=== PATIENT | female | born 1940 | race Caucasian/White ===

== ENCOUNTER 2020-07-31 12:04 | Inpatient (IN) | payer OTHER, SELFPAY ==
--- NOTE | 2020-07-30 22:13 | NUR ---
PATIENT RESTING: Patient resting quietly. No acute distress noted. Vital signs within normal range. Addendum: 08/01/20 at 0137 by Mariana Sethi RN WRONG ENTRY
[~2020-07-31] VITALS: Ht 152.4 cm; Wt 54.9 kg
[2020-07-31 12:20] VITALS: BP_SYST 155
--- NOTE | 2020-07-31 12:33 | NUR ---
Patient to ER bed 7 to gown for evaluation. Side rails up. Report given to Reza CODY.
--- NOTE | 2020-07-31 12:45 | NUR ---
Pt brought to ER for low back pain 06/27 after attempting to help another person up, pt resting in [facility] at this time, accompanied by family member, VSS.
--- NOTE | 2020-07-31 12:48 | NUR ---
ER at bedside examining patient.
[2020-07-31] MEDS ORDERED: MORPHINE 2 MG/ML INJ. SYRINGE IVP ONE (13:00)
[2020-07-31] MEDS ORDERED: CYCLOBENZAPRINE HCL 10 MG TABLET (FLEXERIL) PO ONE (13:00)
--- NOTE | 2020-07-31 14:30 | NUR ---
Pt resting in [facility] at this time VSS
--- NOTE | 2020-07-31 15:00 | NUR ---
Pt resting comfortably, VSS, no distress noted.
--- NOTE | 2020-07-31 16:53 | NUR ---
Patient will be admitted to care of [facility]. Admitted to Medsurg unit. Will go to room 102A. Belongings list completed. Complete and up to date summary report printed. SBAR report to be given at bedside with opportunity for questions.
[2020-07-31] MEDS ORDERED: SIMV5TAB59 PO (16:54)
[2020-07-31] MEDS ORDERED: VAL2 PO (16:55)
--- NOTE | 2020-07-31 16:58 | NUR ---
Medication reconciliation completed with information provided by pt. Any prior medication reconciliation on file was reviewed and corrected.Pt does not know he dosage and frequency of her home meds
--- NOTE | 2020-07-31 17:01 | NUR ---
ADMISSION NOTE Received patient from ER via ahsan, received report from GARCIA CODY. Patient admitted with diagnosis of ACUTE LUMBAR FRACTURE. Patient oriented to hospital routine, call light, toileting and safety-patient verbalized understanding.
--- NOTE | 2020-07-31 17:02 | NUR ---
CONSULTATION CALLED REASON FOR CONSULTATION:ACUTE LUMBAR FRACTURE WAS CONSULT CALLED?Y PERSON WHO WAS NOTIFIED:IDA CONSULTING PHYSICIAN:MASSIEL SHANNON TUBE FORMER OPERATOR SPECIALTY:NEURO SURGEON TUBE FORMER OPERATOR PHONE NUMBER:[phone] REQUESTING PHYSICIAN:SHANT SALES
[2020-07-31 17:14] VITALS: BP_SYST 148
[2020-07-31] MEDS ORDERED: FLU VACC QS2020-21(65UP)/PF 0.7 ML/SYRINGE I.M. PRN (17:45)
--- NOTE | 2020-07-31 18:14 | NUR ---
to the floor this evening at about 1700, alert, oriented, and appropriate. Had difficulty when attempted to get to bed, " so much in pain " with minimal assistance, to bed, and using bedpan right away. Pain started today when tried to crop picker grandchild from the floor, felt pain right on low back, history revealed she had spinal fx. the pain described as " sharp, radiated to bilateral flanks, denied numbness, tingling, nor weakness" attending called x 1 for pain meds. on bedrest and eating dinner now.
[2020-07-31] MEDS: KETOROLAC TROMETHAMINE 15 MG VIAL IVP SCH (18:55)
--- NOTE | 2020-07-31 19:35 | NUR ---
ROUNDS PATIENT RESTING COMFORTABLY IN BED, NOT IN DISTRESS, VITALS STABLE. NO MORE PAIN AT THIS TIME. ASSESSMENT DONE AND DOCUMENTED. SEE FLOWSHEET. NEEDS ATTENDED TO. SAFETY AND FALL MEASURES IN PLACED. BED IN LOW AND LOCKED POSITION. CALL LIGHT PLACED WITHIN REACH.
[2020-08-01] VITALS: BP_SYST 131
--- NOTE | 2020-08-01 00:12 | NUR ---
PATIENT RESTING: Patient resting quietly. No acute distress noted. Vital signs within normal range.
[2020-08-01] MEDS: KETOROLAC TROMETHAMINE 15 MG VIAL IVP SCH ×4 (01:12→18:59)
--- NOTE | 2020-08-01 02:14 | NUR ---
ROUNDS PATIENT SLEEPING, NO SOB NOTED NOR PAIN AND DISCOMFORT, WILL CONTINUE TO MONITOR.
--- NOTE | 2020-08-01 06:21 | NUR ---
FLU VACCINE FLU VACCINE GIVEN ORDERED AND CONSENTED PER SCREENING, TOLERATED WELL. WILL CONTINUE TO MONITOR.
[2020-08-01 06:44] LABS: BASOPHILS # (AUTO) 0.1 K/uL (0.0-0.2); BASOPHILS % (AUTO) 0.9 % (0.0-2.0); EOSINOPHILS # (AUTO) 0.2 K/uL (0.0-0.4); EOSINOPHILS % (AUTO) 2.5 % (0.0-4.0); HEMATOCRIT 38.1 % (36-48); LYMPHOCYTES # (AUTO) 1.9 K/uL (1.0-5.5); LYMPHOCYTES % (AUTO) 25.9 % (20.5-51.5); MEAN CORPUSCULAR HEMOGLOBIN 32 pg (27-31); MEAN CORPUSCULAR HGB CONC 34 % (32-36); MEAN CORPUSCULAR VOLUME 93 fL (79.0-98.0); MONOCYTES # (AUTO) 0.7 K/uL (0.0-1.0); MONOCYTES % (AUTO) 8.7 % (1.7-9.3); NEUTROPHILS # (AUTO) 4.6 K/uL (1.8-7.7); PLATELET COUNT (AUTO) 207 K/uL (130-430); RED CELL DISTRIBUTION WIDTH 12.7 % (9.0-15.0); WHITE BLOOD COUNT (AUTO) 7.5 K/uL (4.8-10.8)
[2020-08-01 07:29] LABS: ANION GAP 8 (5-15); CALCIUM 8.7 mg/dL (8.4-11.0); CHLORIDE 103 mmol/L (98-107); CREATININE 0.72 mg/dL (0.55-1.30); GLUCOSE 99 mg/dL (70-99); POTASSIUM 4.2 mmol/L (3.5-5.1); SODIUM SERUM 137 mmol/L (136-145); UREA NITROGEN, BLOOD 16 mg/dL (8-21)
--- NOTE | 2020-08-01 08:00 | NUR ---
A/Ox4,occitan speaking,vss,resting well in bed,no c/o pain or discomfort,needs attended,call light & personal items within pt reach safety maintained.continue to monitor pt.
[2020-08-01] MEDS: ENOXAPARIN SODIUM 40 MG/0.4 ML SYRINGE SUBCUT SCH (09:00)
[2020-08-01] MEDS: LOSARTAN POTASSIUM 50 MG TABLET (COZAAR) PO SCH (09:01)
--- NOTE | 2020-08-01 09:50 | NUR ---
Nutrition Update Andesron Scale 17 noted. Pt admitted for acute lumbar fracture. Diet: regular BMI: 23.6 kg/m2 RD to follow per nutrition care standards.
--- NOTE | 2020-08-01 10:00 | NUR ---
assited pt urinated in bedpan,hourly rounds made,safety maintained.
--- NOTE | 2020-08-01 12:00 | NUR ---
vss,pt c/o severe pain in left side of back when turns,continue and give toradol 15mg IV per order. and repositioned for comfort.
[2020-08-01 12:17] VITALS: BP_SYST 144
--- NOTE | 2020-08-01 12:19 | NUR ---
Case mgt: Met w/pt at bedside to do DCPA-Pt speaks fluent German-She says she lives in [place] in home with her dtr Kandy but was visiting her daughters Leatha and Tricia (Tricia is disabled so Leatha takes care of her),when she hurt her back helping w/Tricia. Pt dcp will depend on POC pending neursurgeron consult. I explained she may need home health vs. snf for PT once neurosurgeon sees her we will know more (PT leyla). Pt says if able to go home, she will go to her dtr Leatha's single story house in [place] since there is hospital bed there and it's closer than [place] & Leatha can help her more than Kandy can. Pt has [facility] up in [place]. I explained choice of vendor and acknowledged pt also has [id number] secondary.Pt resides in [facility].F/U for dc planning as needed. ANDREAS CODY
--- NOTE | 2020-08-01 14:00 | NUR ---
pt sleeping quietly in bed.continue to monitor pt.
[2020-08-01] MEDS ORDERED: HYDROcodone/ACETAMIN 10-325 MG TAB PO PRN (15:30)
[2020-08-01] MEDS ORDERED: NALOXONE HCL 0.4 MG/ML AMP (NARCAN) IVP PRN ×2 (15:30)
--- NOTE | 2020-08-01 16:00 | NUR ---
surgical consult came and seen pt at bedside.orders received and carried out.
[2020-08-01 16:20] VITALS: BP_SYST 153
--- NOTE | 2020-08-01 17:43 | NUR ---
RESUME CARE Patient resting in the bed. No acute distress. Skin warm and dry to touch. SL intact to RFA, no redness, no swelling, patent. Safety measure maintained. Call light within reached. Bed locked in low position, side rails up, bed alarm on. Continue to monitor and plan of care.
[2020-08-01] MEDS ORDERED: MILK OF MAGNESIA 30 ML UDC PO ONE (18:00)
[2020-08-01] MEDS ORDERED: MILK OF MAGNESIA 30 ML UDC PO PRN (18:00)
[2020-08-01] MEDS: cefTRIAXone 1 GM in D5W 50 ML IV SCH (18:46)
--- NOTE | 2020-08-01 18:58 | NUR ---
CLOSING NOTE Patient resting in the bed. No acute distress. Skin warm and dry to touch. IV intact to RFA, no redness, no swelling, patent. All needs met. Safety measure maintained. Call light within reached. Bed locked in low position, side rails up, bed alarm on. Will endorse to night nurse.
[2020-08-01] MEDS ORDERED: cefTRIAXone 1 GM VIAL ONE (18:59)
--- NOTE | 2020-08-01 19:35 | NUR ---
ROUNDS PATIENT RESTING COMFORTABLY IN BED, VITALS STABLE, DENIES PAIN AT THIS TIME. SHIFT ASSESSMENT DONE AND DOCUMENTED. SEE FLOWSHEET. NEEDS ATTENDED TO. SAFETY AND FALL MEASURES IN PLACED. BED ALARM ON. CALL LIGHT PLACED WITHIN REACH.
[2020-08-01 20:00] VITALS: BP_SYST 122
[2020-08-01] MEDS: SIMVASTATIN 10 MG TABLET PO SCH (20:28)
[2020-08-01] MEDS: SENNOSIDES 8.6 MG TABLET PO SCH (20:28)
--- NOTE | 2020-08-01 21:10 | NUR ---
MEDICATIONS DUE MEDICATIONS GIVEN SCHEDULED, TOLERATED WELL. WILL CONTINUE TO MONITOR.
[2020-08-02 00:10] VITALS: BP_SYST 128
--- NOTE | 2020-08-02 00:16 | NUR ---
PATIENT RESTING: Patient resting quietly. No acute distress noted. Vital signs within normal range.
[2020-08-02] MEDS: KETOROLAC TROMETHAMINE 15 MG VIAL IVP SCH ×3 (00:50→12:26)
--- NOTE | 2020-08-02 02:13 | NUR ---
ROUNDS PATIENT ASLEEP, RESPIRATIONS EVEN AND UNLABORED, NO SOB NOTED. WILL CONTINUE TO MONITOR.
--- NOTE | 2020-08-02 04:17 | NUR ---
ROUNDS PATIENT SLEEPING, NO SOB NOR PAIN AND DISCOMFORT NOTED. WILL CONTINUE TO MONITOR.
--- NOTE | 2020-08-02 06:38 | NUR ---
CLOSING NOTES PATIENT AWAKE, NO COMPLAINTS AT THIS TIME, ALL NEEDS ATTENDED TO. SAFETY MEASURES MAINTAINED. BED IN LOW AND LOCKED POSITION. CALL LIGHT PLACED WITHIN REACH.
[2020-08-02] MEDS: LOSARTAN POTASSIUM 50 MG TABLET (COZAAR) PO SCH (08:04)
[2020-08-02] MEDS: ENOXAPARIN SODIUM 40 MG/0.4 ML SYRINGE SUBCUT SCH (08:06)
[2020-08-02 08:10] VITALS: BP_SYST 139
--- NOTE | 2020-08-02 08:10 | NUR ---
Routine Scheduled medications given per order. Patient resting quietly in bed with no distress noted. Patient stable at this time.
--- NOTE | 2020-08-02 09:30 | NUR ---
Routine Patient assisted to bedside commode and back to bed. Patient stable.
[2020-08-02] MEDS: HYDROcodone/ACETAMIN 10-325 MG TAB PO PRN (10:55)
--- NOTE | 2020-08-02 10:55 | NUR ---
Routine Patient medicated for 10/10 pain in abdomen and lower back. Patient stable at this time.
[2020-08-02 12:10] VITALS: BP_SYST 145
--- NOTE | 2020-08-02 12:27 | NUR ---
Routine Scheduled IVP medication given. Patient resting comfortably and quietly in bed at this time; stable.
--- NOTE | 2020-08-02 12:54 | NUR ---
Routine Patient eating lunch; states pain is subsiding; now 11/16. Patient stable at this time.
--- NOTE | 2020-08-02 13:00 | NUR ---
Routine Patient eating lunch with Dr. Berry at bedside. Patient stable.
[2020-08-02] MEDS ORDERED: DOCUSATE SODIUM 100 MG CAPSULE PO ONE (13:45)
[2020-08-02] MEDS ORDERED: ONDANSETRON HCL 4 MG/2 ML VIAL IVP PRN (14:15)
[2020-08-02] MEDS ORDERED: traMADol HCL HCL 50 MG TABLET (ULTRAM) PO PRN (14:15)
--- NOTE | 2020-08-02 14:30 | NUR ---
c/o of nausea/vomiting pt c/o of nausea and vomiting x2. dr rossi notified. Zofran 4 mg ivp given as ordered. will continue to monitor
--- NOTE | 2020-08-02 14:53 | NUR ---
DC Planning: faxed referral package attn Ginette at [facility] fax # [phone], tel [phone], pending PT. The pt c/o nausea and vomiting today. Per Ginette, the case will be reviewed in am. CM to f/u. >> Per GLO Sae, LSO back brace is at bedside.
[2020-08-02] MEDS ORDERED: BISACODYL 10 MG/SUPPOSITORY RC ONE (15:30)
[2020-08-02] MEDS: MECLIZINE HCL 25 MG TABLET (ANITVERT) PO SCH ×2 (15:36→20:13)
--- NOTE | 2020-08-02 15:38 | NUR ---
Routine Scheduled medications given per order. Patient resting quietly in bed at this time. Patient stable.
[2020-08-02 16:40] VITALS: BP_SYST 126
[2020-08-02] MEDS: cefTRIAXone 1 GM in D5W 50 ML IV SCH (17:32)
--- NOTE | 2020-08-02 17:33 | NUR ---
Routine Scheduled IV abx given per order. Patient resting quietly in bed at this time. Patient stable.
--- NOTE | 2020-08-02 19:30 | NUR ---
Initial Note: Received report from matthew RN. Patient is in bed, resting. No acute distress. Even, nonlabored breathing on room air. IV site is patent, intact, and saline locked. Bed is locked at lowest position. Side rails up x3. Bed alarm is on. Call light is with patient. Safety and fall precautions in place. Will continue with plan of care.
[2020-08-02 20:00] VITALS: BP_SYST 136
[2020-08-02] MEDS: SENNOSIDES 8.6 MG TABLET PO SCH (20:13)
[2020-08-02] MEDS: SIMVASTATIN 10 MG TABLET PO SCH (20:14)
--- NOTE | 2020-08-02 21:45 | NUR ---
Rounds: Patient is resting in bed. No s/s of acute distress. Respirations are even and unlabored. Call light is with patient. Safety and fall precautions in place. Will continue monitoring.
--- NOTE | 2020-08-02 23:45 | NUR ---
Rounds: Patient is resting in bed. No signs of acute distress. Breathing is even and nonlabored on room air. Call light is with patient. Safety and fall precautions in place. Will continue monitoring.
[2020-08-03 00:24] VITALS: BP_SYST 154
--- NOTE | 2020-08-03 02:00 | NUR ---
Rounds: Patient is sleeping in bed. No acute distress. Even, nonlabored respirations on room air. Call light is with patient. Safety and fall precautions in place. Will continue to monitor.
--- NOTE | 2020-08-03 04:15 | NUR ---
Rounds: Patient is resting in bed. No acute distress. Respirations are even and nonlabored on room air. Call light is with patient. Safety and fall precautions in place. Will continue to monitor.
[2020-08-03 06:19] LABS: BASOPHILS # (AUTO) 0.1 K/uL (0.0-0.2); BASOPHILS % (AUTO) 0.6 % (0.0-2.0); EOSINOPHILS # (AUTO) 0.1 K/uL (0.0-0.4); HEMATOCRIT 38.2 % (36-48); HEMOGLOBIN 12.9 g/dL (12.0-16.0); LYMPHOCYTES # (AUTO) 1.1 K/uL (1.0-5.5); LYMPHOCYTES % (AUTO) 10.4 % (20.5-51.5); MEAN CORPUSCULAR HEMOGLOBIN 31 pg (27-31); MEAN CORPUSCULAR HGB CONC 34 % (32-36); MEAN CORPUSCULAR VOLUME 93 fL (79.0-98.0); MONOCYTES # (AUTO) 1.1 K/uL (0.0-1.0); MONOCYTES % (AUTO) 10.8 % (1.7-9.3); NEUTROPHILS # (AUTO) 8.1 K/uL (1.8-7.7); NEUTROPHILS % (AUTO) 77.2 % (40.0-70.0); PLATELET COUNT (AUTO) 189 K/uL (130-430); RED BLOOD CELL COUNT(AUTO) 4.12 MIL/uL (4.2-6.2); RED CELL DISTRIBUTION WIDTH 12.4 % (9.0-15.0); WHITE BLOOD COUNT (AUTO) 10.5 K/uL (4.8-10.8)
[2020-08-03 06:30] LABS: ANION GAP 6 (5-15); CALCIUM 8.5 mg/dL (8.4-11.0); CHLORIDE 101 mmol/L (98-107); CREATININE 0.84 mg/dL (0.55-1.30); GLUCOSE 116 mg/dL (70-99); POTASSIUM 4.3 mmol/L (3.5-5.1); SODIUM SERUM 136 mmol/L (136-145); UREA NITROGEN, BLOOD 12 mg/dL (8-21)
--- NOTE | 2020-08-03 06:46 | NUR ---
Closing Note: Patient is in bed, resting. No acute distress. Even, nonlabored breathing on room air. IV site is patent, intact, and saline locked. All needs met. Bed is locked at lowest position. Side rails up x3. Bed alarm is on. Call light is with patient. Safety and fall precautions in place. Will endorse to dayshijosue RN.
--- NOTE | 2020-08-03 08:00 | NUR ---
AM ROUNDS: PATIENT ON SEMI AGUIRRE'S POSITION.MONGOLIAN SPEAKING ,UNDERSTAND BASIC [place]. IV SALINE LOCK. CALL LIGHT WITH IN REACH. BED LOCKED AT LOWEST POSITION. BED ALARM ON. NO DISTRESS.
[2020-08-03] MEDS: LOSARTAN POTASSIUM 50 MG TABLET (COZAAR) PO SCH (08:40)
[2020-08-03] MEDS: MECLIZINE HCL 25 MG TABLET (ANITVERT) PO SCH ×2 (08:40→20:36)
--- NOTE | 2020-08-03 08:40 | NUR ---
PAIN MEDS: C/O LOWER BACK PAIN DUE PO ULTRAM GIVEN PER PATIENT'S REQUEST. NO PROBLEM.
[2020-08-03] MEDS: ENOXAPARIN SODIUM 40 MG/0.4 ML SYRINGE SUBCUT SCH (08:41)
[2020-08-03 08:45] VITALS: BP_SYST 126
[2020-08-03 12:09] VITALS: BP_SYST 115
--- NOTE | 2020-08-03 13:38 | NUR ---
P.T. NOTES P.T. EVAL COMPLETED; REFER TO EVAL FOR DETAILS; WILL BENEFIT W/ P.T. POST ACUTE STAY.
--- NOTE | 2020-08-03 14:52 | NUR ---
Discharge Planning: DCP faxed patient PT notes to [facility] p [phone]) DCP to follow up Addendum: 08/03/20 at 1522 by Genet Shelton DP DCP arranged transportation on Will Call with [facility] ([phone]) BLS to [facility] p [phone]) pending DC order.
[2020-08-03 16:09] VITALS: BP_SYST 119
[2020-08-03] MEDS: cefTRIAXone 1 GM in D5W 50 ML IV SCH (17:24)
--- NOTE | 2020-08-03 19:30 | NUR ---
OPENING NOTE: RECEIVED SBAR REPORT FROM DAY SHIFT RN. PATIENT IS IN BED, AWAKE, ALERT AND ORIENTED X 4. RESPIRATION IS EVEN AND NON-LABORED ON RA. NO S/S ACUTE DISTRESS NOTED. IV SALINE LOCK NOTED ON R HAND. NO SIGN OF INFILTRATION NOTED AT THIS TIME. SAFETY AND FALL PRECAUTIONS ARE IN PLACE. WILL CONTINUE TO MONITOR.
--- NOTE | 2020-08-03 19:37 | NUR ---
END OF SHIFT: REPORT GIVEN TO NIGHT NURSE KAISER. NO ACUTE DISTRESS. SAFETY MEASURES RENDERED.
--- NOTE | 2020-08-03 20:13 | NUR ---
MED PASS: PATIENT GIVEN PO SCHEDULED MEDS, TOLERATED TAKING PO MEDS WELL. NO S/S ACUTE DISTRESS NOTED. SAFETY AND FALL PRECAUTIONS ARE IN PLACE. CALL LIGHT IS WITH PATIENT. WILL CONTINUE TO MONITOR.
[2020-08-03] MEDS: HYDROcodone/ACETAMIN 10-325 MG TAB PO PRN (20:35)
[2020-08-03] MEDS: SIMVASTATIN 10 MG TABLET PO SCH (20:36)
[2020-08-03] MEDS: SENNOSIDES 8.6 MG TABLET PO SCH (20:36)
--- NOTE | 2020-08-03 22:15 | NUR ---
RN ROUNDS: IV SITE NOTED TO BE INFILTRATED. DISCONTINUE IV. COVERED THE SITE WITH DRY DRESSING.
[2020-08-04 00:08] VITALS: BP_SYST 107
--- NOTE | 2020-08-04 00:15 | NUR ---
RN ROUNDS: PATIENT IS IN BED, CURRENTLY SLEEPING. RESPIRATION IS EVEN AND NON-LABORED. NO S/S ACUTE DISTRESS NOTED AT THIS TIME. SAFETY AND FALL PRECAUTIONS ARE IN PLACE. WILL CONTINUE TO MONITOR PATIENT.
--- NOTE | 2020-08-04 02:20 | NUR ---
RN ROUNDS: PATIENT IS IN THE BED, SLEEPING. BREATHING EVENLY AND NON-LABORED ON RA. NO S/S ACUTE DISTRESS NOTED AT THIS TIME. SAFETY AND FALL PRECAUTIONS MAINTAINED, WILL CONTINUE TO MONITOR.
--- NOTE | 2020-08-04 04:10 | NUR ---
RN ROUNDS: PATIENT IS IN THE BED, CURRENTLY SLEEPING. NO S/S ACUTE DISTRESS NOTED. SAFETY AND FALL PRECAUTIONS ARE IN PLACE. CALL LIGHT IS WITH PATIENT. WILL CONTINUE TO MONITOR.
--- NOTE | 2020-08-04 07:04 | NUR ---
CLOSING NOTE: PATIENT IS IN BED, AWAKE. RESPIRATION IS EVEN AND UNLABORED ON RA. NO S/S ACUTE DISTRESS NOTED. PATIENT DENIES PAIN. SAFETY AND FALL PRECAUTIONS ARE IN PLACE. CALL LIGHT IS WITH PATIENT. SAFETY AND FALL PRECAUTIONS ARE IN PLACE. CALL LIGHT IS WITH PATIENT. WILL ENDORSE PATIENT CARE TO DAY SHIFT RN.
--- NOTE | 2020-08-04 07:20 | NUR ---
OPENING NOTES PT AWAKE, ALERT, AND ORIENTED. NONLABORED BREATHING NOTED ON ROOM AIR. PT DENIES PAIN AND SOB AT THIS TIME. NO ACUTE DISTRESS NOTED. NO IV LINE NOTED, WILL RE-INSERT. ALL NEEDS MET. CALL LIGHT IN REACH. BED LOCKED AND IN LOWEST POSITION. BED ALARM ON. FALL AND ASPIRATION PRECAUTIONS IN PLACE. CONTINUE TO MONITOR.
--- NOTE | 2020-08-04 07:55 | NUR ---
Nutrition Update Anderson scale 16 noted. Pt admitted for acute lumbar fracture Diet: Regular Diet with Ensure Enlive TID BMI: 23.6 kg/m2 RD to follow per nutrition care standards.
[2020-08-04 08:00] VITALS: BP_SYST 125
[2020-08-04] MEDS: MECLIZINE HCL 25 MG TABLET (ANITVERT) PO SCH (08:31)
[2020-08-04] MEDS: LOSARTAN POTASSIUM 50 MG TABLET (COZAAR) PO SCH (08:31)
[2020-08-04] MEDS: ENOXAPARIN SODIUM 40 MG/0.4 ML SYRINGE SUBCUT SCH (08:32)
--- NOTE | 2020-08-04 08:37 | NUR ---
ROUTINE MEDS ADMINISTERED ORDERED PER MD, EDUCATION GIVEN, PT VERBALIZED UNDERSTANDING, TOLERATED WELL. CONTINUE TO MONITOR.
--- NOTE | 2020-08-04 11:29 | NUR ---
Discharge Planning: DCP faxed patient Covid19 results [facility] p [phone]) Ginette will call with room.
[2020-08-04 11:32] VITALS: BP_SYST 120
--- NOTE | 2020-08-04 12:24 | NUR ---
Discharge Planning: DCP arranged transportation with [facility] ([phone]) BLS 6:00pm to [facility] ( [phone] p [phone]) Rm [id number] per Ginette after 6:00pm preferred for arrival. DCP made nurse aware.
[2020-08-04] MEDS: HYDROcodone/ACETAMIN 10-325 MG TAB PO PRN (12:27)
--- NOTE | 2020-08-04 12:34 | NUR ---
PT C/O 04/27 PAIN, CHECKED BP, ADMINISTERED PAIN MEDICATIONS ORDERED PER MD, EDUCATION GIVEN, TOLERATED WELL. CONTINUE TO MONITOR.
--- NOTE | 2020-08-04 14:15 | NUR ---
ROUNDS PT AWAKE AND ALERT. NO ACUTE DISTRESS NOTED. ALL NEEDS MET. CALL LIGHT IN REACH. CONTINUE TO MONITOR.
--- NOTE | 2020-08-04 15:15 | NUR ---
ROUNDS PT RESTING IN BED, CHEST RISE AND FALL NOTED. EASILY AWAKEN. NO ACUTE DISTRESS NOTED. ALL NEEDS MET. CALL LIGHT IN REACH. CONTINUE TO MONITOR.
[2020-08-04 15:23] VITALS: BP_SYST 142
[2020-08-04 16:00] VITALS: BP_SYST 142
--- NOTE | 2020-08-04 16:30 | NUR ---
IV RE-INSERTION: No IV line noted. Restarted on L AC 24G. Successful after 2 attempts. Saline lock. Will observe for any signs of infiltration.
[2020-08-04] MEDS: cefTRIAXone 1 GM in D5W 50 ML IV SCH (17:27)
--- NOTE | 2020-08-04 17:28 | NUR ---
iv abx administered as ordered per md, education given, tolerated well. continue to monitor.
--- NOTE | 2020-08-04 18:52 | NUR ---
CLOSING NOTES PT AWAKE, ALERT, AND ORIENTED. NONLABORED BREATHING NOTED ON ROOM AIR. NO S/S OF PAIN AND SOB AT THIS TIME. NO ACUTE DISTRESS NOTED. IV LINE INTACT AND PATENT, NO SIGNS OF INFILTRATION NOTED. ALL NEEDS MET. CALL LIGHT IN REACH. BED LOCKED AND IN LOWEST POSITION. BED ALARM ON. FALL AND ASPIRATION PRECAUTIONS IN PLACE. AWAITING FOR AMBULANCE TO ARRIVE. WILL ENDORSE TO NOC NURSE.
--- NOTE | 2020-08-04 20:00 | NUR ---
D/C Patient Patient given medication reconciliation form and D/C instructions. Exit Care provided Patient. Patient in stable condition, ID band removed. IV catheter on left AC and it will be in place for rehab to continue abx treatment, dressing is intact and dry, no active bleeding. Patient educated on pain management. All belongings sent with patient. patient transferred to ambulance via gurney .
== END 2020-08-04 20:00 | DRG 544 ==
LOC: SED 12:04 → SMU 15:36
PROVIDERS: ADMIT Family Medicine; ATTEND Family Medicine
DX: M48.56XA Collapsed vertebra, not elsewhere classified, lumbar region, initial encounter for fracture (principal); M81.0 Age-related osteoporosis without current pathological fracture; E78.5 Hyperlipidemia, unspecified; M48.54XA Collapsed vertebra, not elsewhere classified, thoracic region, initial encounter for fracture; I10 Essential (primary) hypertension; K11.21 Acute sialoadenitis; Z86.73 Personal history of transient ischemic attack (TIA), and cerebral infarction without residual deficits
CPT/HCPCS: 36415; 72131; 76376; 80048; 82306; 83735-TC; 85025; 96374; 97110-GP; 97112-GP; 97116-GP; 97530-GP; 99285; J0696; J1650; J1885; J2270; J2405; J7060; J8597

== ENCOUNTER 2022-01-25 10:43 | Emergency (ER) | payer OTHER ==
[~2022-01-25] VITALS: Ht 149.9 cm; Wt 55.3 kg
[~2022-01-25 10:43] MED LIST: SIMV5TAB59 PO
[2022-01-25 11:19] VITALS: BP_SYST 196
--- NOTE | 2022-01-25 11:35 | NUR ---
Pt present to ED with complaint of hematemesis. Pt states that she was dx with an upper GI hernia during an endoscopy. Pt AOx4 GCS 15 citizen of [place] speaking accompanied by daughter. Pt states that she has been having difficulty eating for the past year. Pt also complains of CP located in the epigastric region. Pt placed in a gown and moved to ED bed 3
--- NOTE | 2022-01-25 11:41 | NUR ---
ED physician at the bedside assessing pt
[2022-01-25] MEDS ORDERED: KETOROLAC TROMETHAMINE 60 MG/2 ML VIAL IM ONE (11:45)
[2022-01-25] MEDS ORDERED: MAG HYDROX/AL HYDROX/SIMETH 30 ML, DICYCLOMINE HCL 20 MG, LIDOCAINE VISCOUS 2% 15ML (PO... PO ONE ×3 (11:45)
[2022-01-25 12:09] LABS: BASOPHILS # (AUTO) 0.1 K/uL (0.0-0.2); BASOPHILS % (AUTO) 0.8 % (0.0-2.0); EOSINOPHILS # (AUTO) 0.1 K/uL (0.0-0.4); HEMATOCRIT 37.8 % (36-48); HEMOGLOBIN 12.7 g/dL (12.0-16.0); LYMPHOCYTES # (AUTO) 2.2 K/uL (1.0-5.5); LYMPHOCYTES % (AUTO) 31.1 % (20.5-51.5); MEAN CORPUSCULAR HEMOGLOBIN 31 pg (27-31); MEAN CORPUSCULAR HGB CONC 34 % (32-36); MEAN CORPUSCULAR VOLUME 92 fL (79.0-98.0); MONOCYTES # (AUTO) 0.8 K/uL (0.0-1.0); MONOCYTES % (AUTO) 10.8 % (1.7-9.3); NEUTROPHILS # (AUTO) 3.9 K/uL (1.8-7.7); NEUTROPHILS % (AUTO) 55.3 % (40.0-70.0); PLATELET COUNT (AUTO) 219 K/uL (130-430); RED BLOOD CELL COUNT(AUTO) 4.13 MIL/uL (4.2-6.2); RED CELL DISTRIBUTION WIDTH 12.7 % (9.0-15.0); WHITE BLOOD COUNT (AUTO) 7.1 K/uL (4.8-10.8)
[2022-01-25 12:16] LABS: ANION GAP 4 (5-15); CALCIUM 8.3 mg/dL (8.4-11.0); CHLORIDE 106 mmol/L (98-107); CREATININE 0.84 mg/dL (0.55-1.30); GLUCOSE 107 mg/dL (70-99); POTASSIUM 3.9 mmol/L (3.5-5.1); SODIUM SERUM 137 mmol/L (136-145); UREA NITROGEN, BLOOD 15 mg/dL (8-21)
[2022-01-25 12:26] LABS: ALANINE AMINOTRANSFERASE 52 U/L (12-78); ALBUMIN 3.3 g/dL (3.4-4.8); ASPARTATE AMINOTRANSFERASE 39 U/L (10-37); TOTAL BILIRUBIN 0.3 mg/dL (0.0-1.0)
[2022-01-25] MEDS ORDERED: SUCR1ORA4 PO (12:59)
[2022-01-25] MEDS ORDERED: TRAM50TA PO (12:59)
[2022-01-25 13:15] VITALS: BP_SYST 196
--- NOTE | 2022-01-25 13:19 | NUR ---
Patient given written and verbal discharge instructions and verbalizes understanding. ER MD discussed with patient the results and treatment provided. Patient in stable condition. ID arm band removed. IV catheter removed intact and dressing applied, no active bleeding. Rx of tramadol and carafate given. Patient educated on pain management and to follow up with PMD. Pain Scale 0. Opportunity for questions provided and answered. Medication side effect fact sheet provided. GI recommendations provided.
== END 2022-01-25 13:15 | disposition home or self-care (01) ==
LOC: SED 10:43
DX: K44.9 Diaphragmatic hernia without obstruction or gangrene (principal); R10.13 Epigastric pain; Z79.899 Other long term (current) drug therapy
CPT/HCPCS: 36415; 71045; 80053; 83880; 84484; 85025; 93005; 96372; 99285; J1885; J2001